=== PATIENT | female | born 1990 | race American Indian/Alaskan Native ===

== ENCOUNTER 2020-04-13 01:26 | Emergency (ER) | payer OTHER ==
--- NOTE | 2020-04-13 02:41 | XRay Report ---
RIGHT HAND 2 VIEW(S) INDICATION / CLINICAL INFORMATION: PAIN/SWELLING of the right pinky finger. COMPARISON: None available. FINDINGS: BONES / JOINT(S): No acute fracture or subluxation. No significant arthritis. SOFT TISSUES: No significant abnormality. ADDITIONAL FINDINGS: None. Signer Name: Steve Damon MD Signed: 04/13/2020 2:37 AM Workstation Name: [id number]
== END 2020-04-13 06:00 | disposition left against medical advice (07) ==
LOC: ED 01:26
DX: M25.541 Pain in joints of right hand (principal); Z53.21 Procedure and treatment not carried out due to patient leaving prior to being seen by health care provider